=== PATIENT | male | born 1950 | race Caucasian/White ===

== ENCOUNTER 2017-04-29 03:19 | Inpatient (IN) | payer MEDICARE, OTHER ==
[~2017-04-29] VITALS: Ht 182.9 cm; Wt 81.3 kg
[~2017-04-29 03:19] MED LIST: FLUO40CA9 PO; ROSU40TA PO
[2017-04-29] MEDS ORDERED: SODIUM CHLORIDE 0.9% 1,000ML IVBOLUS ONE (03:30)
[2017-04-29] MEDS ORDERED: MORPHINE SULFATE 4 MG/ML, 1ML IVPush PRN ×2 (03:30→04:30)
[2017-04-29] MEDS: NITROGLYCERIN SINGLE TAB 0.4 MG SL PRN ×2 (03:35→03:45)
[2017-04-29 03:40] LABS: HEMATOCRIT 47.5 % (39.2-51.8); HEMOGLOBIN 15.9 g/dL (13.7-18.0)
[2017-04-29 03:51] LABS: BLOOD UREA NITROGEN 18 mg/dL (7-18)
[2017-04-29] MEDS ORDERED: MORPHINE SULFATE 4 MG/ML, 1ML ONE ×3 (03:51→08:42)
[2017-04-29 03:56] LABS: IS PT STATUS REG ER OR PRE ER? YES
[2017-04-29] MEDS ORDERED: FENTANYL PF 100 MCG/2ML ONE (04:18)
[2017-04-29] MEDS ORDERED: MIDAZOLAM 1 MG/ML, 5ML ONE (04:18)
[2017-04-29] MEDS ORDERED: TICAGRELOR 90 MG TABLET ONE (04:18)
[2017-04-29] MEDS ORDERED: VERAPAMIL 2.5 MG/ML, 2ML ONE (04:19)
[2017-04-29] MEDS ORDERED: NITROGLYCERIN 5 MG/ML, 10ML ONE (04:19)
[2017-04-29] MEDS ORDERED: HEPARIN 1,000 UNITS/ML, 10ML ONE (04:19)
[2017-04-29] MEDS ORDERED: LIDOCAINE 2%, 20ML ONE (04:19)
[2017-04-29] MEDS ORDERED: BIVALIRUDIN 250 MG ONE (04:19)
[2017-04-29] MEDS ORDERED: ONDANSETRON 2MG/ML, 2ML IVPush PRN (04:30)
[2017-04-29] MEDS ORDERED: SODIUM CHLORIDE 0.9% 1,000 ML IV ONE (04:30)
[2017-04-29] MEDS ORDERED: ADENOSINE 90 MG/30 ML ONE (05:07)
[2017-04-29] MEDS: ASPIRIN 81 MG TABLET EC PO SCH (06:00)
[2017-04-29] MEDS ORDERED: SODIUM CHLORIDE 0.9% 500 ML IV ONE (07:00)
[2017-04-29 07:49] VITALS: BP 140/120
[2017-04-29] MEDS: TICAGRELOR 90 MG TABLET PO SCH ×2 (08:07→22:00)
[2017-04-29] MEDS: morphine SULFATE 10 MG/ML, 1ML IVPush PRN ×4 (08:49→23:21)
[2017-04-29] MEDS ORDERED: KETOROLAC 30 MG/1 ML IVPush ONE (09:30)
[2017-04-29] MEDS ORDERED: SODIUM CHLORIDE 0.9% 1,000 ML IV SCH (09:30)
[2017-04-29] MEDS ORDERED: OMNIPAQUE 350 MG/ML, 100ML BOTTLE ONE (09:54)
[2017-04-29] MEDS ORDERED: LABETALOL 5MG/ML, 20ML IVPush PRN (11:00)
[2017-04-29 11:10] LABS: IS PT STATUS REG ER OR PRE ER? NO
[2017-04-29] MEDS: ATORVASTATIN 40 MG TABLET PO SCH (11:24)
[2017-04-29] MEDS ORDERED: PNEUMOCOCCAL 23 VACCINE IM-VACC ONE (12:00)
[2017-04-29] MEDS: LISINOPRIL 5 MG TABLET PO SCH ×2 (13:00→20:13)
[2017-04-29] MEDS: CARVEDILOL 6.25 MG TABLET PO SCH ×2 (17:09→20:13)
[2017-04-29 17:42] LABS: IS PT STATUS REG ER OR PRE ER? NO
[2017-04-29] MEDS ORDERED: CARVEDILOL 3.125 MG TABLET PO SCH (18:00)
[2017-04-29 19:14] VITALS: BP 118/82
[2017-04-30 01:53] VITALS: BP 118/72
[2017-04-30] MEDS: morphine SULFATE 10 MG/ML, 1ML IVPush PRN ×3 (02:46→08:59)
[2017-04-30 05:36] LABS: HEMATOCRIT 41.6 % (39.2-51.8); HEMOGLOBIN 14.2 g/dL (13.7-18.0); WHITE BLOOD COUNT 13.8 x10^3/uL (3.4-10)
[2017-04-30] MEDS: ASPIRIN 81 MG TABLET EC PO SCH (06:02)
[2017-04-30 06:04] LABS: IS PT STATUS REG ER OR PRE ER? NO
[2017-04-30 06:05] LABS: BLOOD UREA NITROGEN 12 mg/dL (7-18)
[2017-04-30] MEDS: TICAGRELOR 90 MG TABLET PO SCH ×2 (08:58→19:50)
[2017-04-30] MEDS: LISINOPRIL 5 MG TABLET PO SCH (08:58)
[2017-04-30] MEDS: ATORVASTATIN 40 MG TABLET PO SCH (08:58)
[2017-04-30 09:01] VITALS: BP 106/77
[2017-04-30] MEDS: CARVEDILOL 6.25 MG TABLET PO SCH ×2 (09:01→19:50)
[2017-04-30] MEDS ORDERED: KETOROLAC 30 MG/1 ML IVPush ONE (10:30)
[2017-04-30 12:35] VITALS: BP 93/52
[2017-04-30] MEDS: HYDROmorphone 1 MG/ML, 1ML IV PRN ×2 (18:02→22:12)
[2017-04-30 18:33] LABS: IS PT STATUS REG ER OR PRE ER? NO
[2017-04-30 19:48] VITALS: BP 109/72
[2017-05-01 00:02] LABS: IS PT STATUS REG ER OR PRE ER? NO
[2017-05-01 02:48] VITALS: BP 120/83
[2017-05-01 06:01] LABS: IS PT STATUS REG ER OR PRE ER? NO
[2017-05-01 07:30] VITALS: BP 117/78
[2017-05-01 08:00] VITALS: BP 125/90
[2017-05-01] MEDS ORDERED: LISINOPRIL 5 MG TABLET PO SCH (09:00)
[2017-05-01 10:06] VITALS: BP 118/82
[2017-05-01] MEDS: CARVEDILOL 6.25 MG TABLET PO SCH (10:11)
[2017-05-01] MEDS: TICAGRELOR 90 MG TABLET PO SCH (10:11)
[2017-05-01] MEDS: ASPIRIN 81 MG TABLET EC PO SCH (10:11)
[2017-05-01] MEDS: ATORVASTATIN 40 MG TABLET PO SCH (10:11)
[2017-05-01] MEDS ORDERED: HYDROcodone/APAP 5/325 TABLET ONE (10:43)
[2017-05-01] MEDS ORDERED: HYDROcodone/APAP 5/325 TABLET PO PRN (11:00)
[2017-05-01] MEDS ORDERED: TICA90TA PO (11:24)
[2017-05-01] MEDS ORDERED: CARV6.2512 PO (11:24)
[2017-05-01] MEDS ORDERED: LISI-167 PO (11:24)
[2017-05-01] MEDS ORDERED: ASPI-621 PO (11:24)
[2017-05-01] MEDS ORDERED: KETOROLAC 30 MG/1 ML IVPush PRN (11:30)
== END 2017-05-01 14:30 | DRG 247 ==
LOC: ED 04:14 → EDIP 04:30 → CCU 06:44 → 5SO 19:02
PROVIDERS: ADMIT Internal Medicine Interventional Cardiology; ATTEND Internal Medicine Interventional Cardiology
PROC: 027034Z Dilation of Coronary Artery, One Artery with Drug-eluting Intraluminal Device, Percutaneous Approach (ICD-10-PCS; principal; 2017-04-29)
PROC: 4A023N7 Measurement of Cardiac Sampling and Pressure, Left Heart, Percutaneous Approach (ICD-10-PCS; 2017-04-29)
PROC: 4A033BC Measurement of Arterial Pressure, Coronary, Percutaneous Approach (ICD-10-PCS; 2017-04-29)
PROC: B2111ZZ Fluoroscopy of Multiple Coronary Arteries using Low Osmolar Contrast (ICD-10-PCS; 2017-04-29)
PROC: B2151ZZ Fluoroscopy of Left Heart using Low Osmolar Contrast (ICD-10-PCS; 2017-04-29)
DX: I21.4 Non-ST elevation (NSTEMI) myocardial infarction (principal); I10 Essential (primary) hypertension; E78.5 Hyperlipidemia, unspecified; I25.10 Atherosclerotic heart disease of native coronary artery without angina pectoris; I25.2 Old myocardial infarction; I70.0 Atherosclerosis of aorta; F32.9 Major depressive disorder, single episode, unspecified; M19.90 Unspecified osteoarthritis, unspecified site; Z87.891 Personal history of nicotine dependence
CPT/HCPCS: 36415; 71010; 71020; 71275; 80047; 80048; 80061; 82040; 84484; 85025; 85379; 85610; 87081; 90732; 93005; 93306; 93458; 93571; 99156; 99157; 99291; C1760; C1894; C9600; J0153; J0583; J1170; J1644; J1885; J2250; J3010; J3490; Q9967; C1725; C1769; C1874; C1887; J2270; J7030; J7040

== ENCOUNTER 2017-08-20 20:37 | Emergency (ER) | payer MEDICARE, OTHER ==
[~2017-08-20] VITALS: Ht 180.3 cm; Wt 76.8 kg
[~2017-08-20 20:37] MED LIST changes: +ASPI-621 PO; +CARV6.2512 PO; +LISI-167 PO; +TICA90TA PO
[2017-08-20] MEDS ORDERED: PLEASE ENTER HEIGHT AND WEIGHT MC SCH (21:00)
[2017-08-20] MEDS ORDERED: SODIUM CHLORIDE 0.9% 1,000ML IVBOLUS ONE (21:00)
[2017-08-20] MEDS ORDERED: SODIUM CHLORIDE FLUSH 10ML SYR IVF ONE (21:00)
[2017-08-20 21:06] LABS: BASOPHILS # (AUTO) 0.01 x10^3/uL (0-0.1); BASOPHILS % (AUTO) 0 % (0-1); EOSINOPHILS % (AUTO) 0 % (1-7); LYMPHOCYTES % (AUTO) 12 % (22-44); MD NO; MEAN CORPUSCULAR HEMOGLOBIN 31.1 pg (27.5-34.5); MEAN CORPUSCULAR HGB CONC 33.6 g/dL (33.2-36.2); MEAN CORPUSCULAR VOLUME 92.5 fL (81-97); MEAN PLATELET VOLUME 7.9 fL (7.4-10.4); MONOCYTES # (AUTO) 0.79 x10^3/uL (0.2-0.8); MONOCYTES % (AUTO) 12 % (2-9); NEUTROPHILS # (AUTO) 5.29 x10^3/uL (1.8-6.8); NEUTROPHILS % (AUTO) 77 % (42-75); PLATELET COUNT 184 x10^3/uL (130-400); RED BLOOD COUNT 4.45 x10^6/uL (4.38-5.82); RED CELL DISTRIBUTION WIDTH 13.8 % (9.4-14.8)
[2017-08-20 21:18] LABS: ALBUMIN 3.3 g/dL (3.4-5.0); ANION GAP 11 mmol/L (5-15); CALCIUM 7.6 mg/dL (8.5-10.1); CHLORIDE 108 mmol/L (98-107); CREATININE 1.43 mg/dL (0.7-1.3)
[2017-08-20 21:22] LABS: TROPONIN I < 0.015 ng/mL (0.000-0.045)
[2017-08-20 22:35] VITALS: BP 112/76
== END 2017-08-20 22:52 | disposition home or self-care (01) ==
LOC: ED 22:46
DX: R55 Syncope and collapse (principal); M25.552 Pain in left hip; M25.512 Pain in left shoulder; E78.5 Hyperlipidemia, unspecified; I25.2 Old myocardial infarction; Z87.891 Personal history of nicotine dependence; W18.30XA Fall on same level, unspecified, initial encounter; Y92.89 Other specified places as the place of occurrence of the external cause; Y93.89 Activity, other specified; Y99.8 Other external cause status
CPT/HCPCS: 36415; 71045; 73030; 73502; 80048; 82040; 84484; 85025; 85379; 93005; 99285; J7030

== ENCOUNTER 2019-06-06 15:18 | Outpatient (CLI) | payer MEDICARE, OTHER ==
[~2019-06-06 15:18] MED LIST changes: -ASPI-621 PO; +ASPI81TA45 PO
== END 2019-06-06 23:59 | disposition home or self-care (01) ==
LOC: CFH 15:18
PROVIDERS: ATTEND Internal Medicine Cardiovascular Disease
DX: I08.8 Other rheumatic multiple valve diseases (principal); I10 Essential (primary) hypertension
CPT/HCPCS: 93306

== ENCOUNTER 2020-01-31 20:19 | Observation (INO) | payer MEDICARE, OTHER ==
[~2020-01-31] VITALS: Ht 182.9 cm; Wt 80.1 kg
--- NOTE | 2020-01-31 20:27 | NUR ---
EKG DONE ON ARRIVAL.
[2020-01-31] MEDS ORDERED: MECLIZINE CHEWABLE 25 MG TAB PO ONE (20:30)
[2020-01-31] MEDS ORDERED: SODIUM CHLORIDE FLUSH 10ML SYR IVF ONE (20:30)
[2020-01-31] MEDS ORDERED: NITROGLYCERIN SINGLE TAB 0.4 MG SL PRN (20:30)
[2020-01-31] MEDS ORDERED: ASPIRIN 81 MG TABLET CHEW PO ONE (20:30)
[2020-01-31] MEDS ORDERED: MECLIZINE CHEWABLE 25 MG TAB ONE (20:59)
[2020-01-31] MEDS ORDERED: ASPIRIN 81 MG TABLET CHEW ONE (20:59)
[2020-01-31] MEDS ORDERED: NITROGLYCERIN SINGLE TAB 0.4 MG SL ONE (20:59)
[2020-01-31] MEDS ORDERED: PLEASE ENTER HEIGHT AND WEIGHT MC SCH (21:00)
[2020-01-31 21:04] LABS: BASOPHILS # (AUTO) 0.04 x10^3/uL (0-0.1); BASOPHILS % (AUTO) 1 % (0-1); EOSINOPHILS # (AUTO) 0.06 x10^3/uL (0-0.4); EOSINOPHILS % (AUTO) 1 % (1-7); LYMPHOCYTES # (AUTO) 2.46 x10^3/uL (1-3.4); LYMPHOCYTES % (AUTO) 35 % (22-44); MD NO; MEAN CORPUSCULAR HEMOGLOBIN 31.4 pg (27.5-34.5); MEAN CORPUSCULAR HGB CONC 33.7 g/dL (33.2-36.2); MEAN CORPUSCULAR VOLUME 93.3 fL (81-97); MEAN PLATELET VOLUME 8.7 fL (7.4-10.4); MONOCYTES # (AUTO) 0.51 x10^3/uL (0.2-0.8); MONOCYTES % (AUTO) 7 % (2-9); NEUTROPHILS # (AUTO) 3.93 x10^3/uL (1.8-6.8); NEUTROPHILS % (AUTO) 56 % (42-75); PLATELET COUNT 224 x10^3/uL (130-400); RED BLOOD COUNT 4.88 x10^6/uL (4.38-5.82); RED CELL DISTRIBUTION WIDTH 13.7 % (9.4-14.8)
[2020-01-31 21:12] LABS: ALBUMIN 3.9 g/dL (3.4-5.0); ANION GAP 7 mmol/L (5-15); CALCIUM 8.5 mg/dL (8.5-10.1); CHLORIDE 112 mmol/L (98-107); CREATININE 0.99 mg/dL (0.7-1.3)
[2020-01-31 21:16] LABS: TROPONIN I < 0.015 ng/mL (0.000-0.045)
--- NOTE | 2020-01-31 21:57 | NUR ---
PT CALLING FAMILY TO REQUEST MEDICATION LIST AT THIS TIME. PT UPDATED ON POC, MONITORING IN PLACE, VSS. CALL LIGHT WITHIN REACH. ALL SAFETY MEASURES IN PLACE.
[2020-01-31] MEDS ORDERED: MECLIZINE CHEWABLE 25 MG TAB PO PRN (22:30)
[2020-01-31] MEDS ORDERED: hydrALAzine 20 MG/ML, 1ML IVPush PRN (22:30)
[2020-01-31] MEDS ORDERED: SODIUM CHLORIDE FLUSH 10ML SYR IVF PRN (22:30)
[2020-01-31] MEDS ORDERED: ACETAMINOPHEN 325 MG TABLET PO PRN (22:30)
[2020-01-31] MEDS ORDERED: ONDANSETRON 2MG/ML, 2ML IVPush PRN (22:30)
[2020-01-31] MEDS ORDERED: OMNIPAQUE 350 MG/ML, 100ML BOTTLE ONE (23:26)
[2020-01-31 23:48] VITALS: BP 136/91
[2020-02-01] VITALS (9 sets, daily range): BP systolic 76–120; BP diastolic 46–90
[2020-02-01 05:40] LABS: BASOPHILS # (AUTO) 0.03 x10^3/uL (0-0.1); BASOPHILS % (AUTO) 1 % (0-1); EOSINOPHILS # (AUTO) 0.12 x10^3/uL (0-0.4); EOSINOPHILS % (AUTO) 2 % (1-7); LYMPHOCYTES # (AUTO) 2.92 x10^3/uL (1-3.4); LYMPHOCYTES % (AUTO) 46 % (22-44); MD NO; MEAN CORPUSCULAR HEMOGLOBIN 31.1 pg (27.5-34.5); MEAN CORPUSCULAR VOLUME 94.1 fL (81-97); MEAN PLATELET VOLUME 9.2 fL (7.4-10.4); MONOCYTES # (AUTO) 0.65 x10^3/uL (0.2-0.8); MONOCYTES % (AUTO) 10 % (2-9); NEUTROPHILS # (AUTO) 2.63 x10^3/uL (1.8-6.8); NEUTROPHILS % (AUTO) 41 % (42-75); PLATELET COUNT 216 x10^3/uL (130-400); RED BLOOD COUNT 4.86 x10^6/uL (4.38-5.82); RED CELL DISTRIBUTION WIDTH 13.3 % (9.4-14.8)
[2020-02-01 05:49] LABS: ANION GAP 4 mmol/L (5-15); CALCIUM 8.1 mg/dL (8.5-10.1); CHLORIDE 110 mmol/L (98-107); CREATININE 0.98 mg/dL (0.7-1.3)
[2020-02-01 05:53] LABS: TROPONIN I < 0.015 ng/mL (0.000-0.045)
[2020-02-01] MEDS: ASPIRIN 81 MG TABLET EC PO SCH (06:43)
[2020-02-01] MEDS ORDERED: LISINOPRIL 10 MG TABLET PO SCH (09:00)
[2020-02-01] MEDS ORDERED: ROSU20TA2 PO (10:37)
[2020-02-01] MEDS ORDERED: CARV3.122 PO (10:37)
[2020-02-01 11:17] LABS: TROPONIN I < 0.015 ng/mL (0.000-0.045)
[2020-02-01] MEDS: ENOXAPARIN 40 MG/0.4 ML SQ SCH (12:33)
[2020-02-01] MEDS ORDERED: SODIUM CHLORIDE 0.9% 1,000ML IVBOLUS ONE ×2 (15:00→17:30)
[2020-02-01] MEDS: SODIUM CHLORIDE 0.9% 1,000 ML IV SCH (20:31)
[2020-02-01] MEDS ORDERED: ATORVASTATIN 80 MG TABLET PO SCH (21:00)
[2020-02-02 01:15] VITALS: BP 100/58
[2020-02-02] MEDS: SODIUM CHLORIDE 0.9% 1,000 ML IV SCH (03:55)
[2020-02-02 05:09] LABS: ALBUMIN 3.2 g/dL (3.4-5.0); ANION GAP 4 mmol/L (5-15); CALCIUM 7.8 mg/dL (8.5-10.1); CHLORIDE 113 mmol/L (98-107)
[2020-02-02 05:12] LABS: ALANINE AMINOTRANSFERASE 21 U/L (12-78); ALKALINE PHOSPHATASE 64 U/L (45-117); BILIRUBIN,TOTAL 0.7 mg/dL (0.2-1.0); TOTAL PROTEIN 5.9 g/dL (6.4-8.2)
[2020-02-02] MEDS: ASPIRIN 81 MG TABLET EC PO SCH (05:54)
[2020-02-02] MEDS ORDERED: REGADENOSON 0.4 MG/5 ML SYRINGE ONE (08:17)
[2020-02-02 08:43] VITALS: BP 98/63
[2020-02-02] MEDS: ENOXAPARIN 40 MG/0.4 ML SQ SCH (13:13)
[2020-02-02 14:29] VITALS: BP 106/67
[2020-02-02] MEDS ORDERED: SODIUM CHLORIDE 0.9% 1,000 ML IV SCH (15:00)
[2020-02-02] MEDS ORDERED: CALC-666 PO (15:20)
== END 2020-02-02 16:50 | disposition home or self-care (01) ==
LOC: ED 21:54 → EDIP 23:19 → INTOOBSV 23:19 → 5SO 23:20 → DCLOUNGE 02-02 16:44
PROVIDERS: ADMIT Internal Medicine; ATTEND Internal Medicine
DX: R42 Dizziness and giddiness (principal); R07.89 Other chest pain; H93.12 Tinnitus, left ear; I25.110 Atherosclerotic heart disease of native coronary artery with unstable angina pectoris; I10 Essential (primary) hypertension; E78.5 Hyperlipidemia, unspecified; I25.2 Old myocardial infarction; F32.9 Major depressive disorder, single episode, unspecified; E87.6 Hypokalemia; I95.9 Hypotension, unspecified; E83.51 Hypocalcemia; R00.1 Bradycardia, unspecified; Z87.891 Personal history of nicotine dependence; Z88.0 Allergy status to penicillin; Z79.899 Other long term (current) drug therapy; Z79.82 Long term (current) use of aspirin; Z95.5 Presence of coronary angioplasty implant and graft
CPT/HCPCS: 36415; 70450; 70496; 70498; 70551; 71045; 78452; 80048; 80053; 82040; 82533; 83605; 83880; 84484; 85025; 85379; 93005; 93017; 93306; 96360; 96361; 96372; 97161; 99285; A9502; C9898; G0378; J1650; J2785; J7030; Q9967